=== PATIENT | male | born 1995 | race African-American/Black ===

== ENCOUNTER 2020-10-30 12:03 | Emergency (ER) | payer OTHER ==
[~2020-10-30] VITALS: Ht 180.3 cm; Wt 83.9 kg
[2020-10-30 12:25] VITALS: BP 134/81
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
[2020-10-30] MEDS ORDERED: Tetanus/Diptheria/Pertussis IM ONE (12:45)
[2020-10-30] MEDS ORDERED: Lidocaine 1% 10mg/ml/Epi 0.005mg/ml 10ml INJ ONE (12:45)
[2020-10-30] MEDS ORDERED: Lidocaine 1% MPF 10mg/ml 5ml INJ ONE (12:45)
[2020-10-30] MEDS ORDERED: Azithromycin 250mg tab ORAL ONE (12:45)
[2020-10-30] MEDS ORDERED: Bacitracin Oint UD TOPIC ONE (12:45)
[2020-10-30 13:47] LABS: APPEARANCE,URINE CLOUDY; BILIRUBIN, URINE NEGATIVE (NEGATIVE); GLUCOSE, URINE (UA) NEGATIVE (NEGATIVE); KETONES,URINE 4+ (NEGATIVE); LEUKOCYTE ESTERASE ,URINE 3+ (NEGATIVE); NITRITE,URINE NEGATIVE (NEGATIVE); PH,URINE 6 (4.5-8.0); PROTEIN,URINE 2+ (NEGATIVE); UROBILINOGEN,URINE NORMAL MG/DL (0.0-1.0)
[2020-10-30 13:48] LABS: COLOR,URINE YELLOW
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
[2020-10-30] MEDS ORDERED: BACITRACIN15 GM TOPIC (14:55)
[2020-10-30] MEDS ORDERED: IBUPROFEN600 M1 ORAL (14:55)
[2020-10-30] MEDS ORDERED: TYLENOL325 MG ORAL (14:55)
[2020-10-30 15:00] VITALS: BP 134/81
--- NOTE | 2020-10-30 15:00 | NUR ---
ED Nurse Note: Pt cleared by health care Provider for discharge. DC instructions/prescription was given and explained to pt and verbalized understanding of teachings. All medical deviecs such as ID band removed. Pt is AAO x4, ambulatory and left with all personal belongings.
== END 2020-10-30 15:00 | disposition home or self-care (01) ==
LOC: EMR 12:36
DX: S01.112A Laceration without foreign body of left eyelid and periocular area, initial encounter (principal); S02.2XXA Fracture of nasal bones, initial encounter for closed fracture; S06.0X0A Concussion without loss of consciousness, initial encounter; N34.2 Other urethritis; Y08.09XA Assault by strike by other specified type of sport equipment, initial encounter; Y93.89 Activity, other specified; Y92.9 Unspecified place or not applicable
CPT/HCPCS: 12011; 70450; 70486; 81003; 87086; 87491; 87590; 90471; 90715; 96372; J0696; Q0144; Z7502; 99283